=== PATIENT | male | born 1955 | race Caucasian/White ===

== ENCOUNTER 2020-11-02 10:07 | Inpatient (IN) | payer BC, OTHER ==
[~2020-11-02] VITALS: Ht 185.4 cm; Wt 111.0 kg
[2020-11-02] MEDS ORDERED: ADENOSINE 6 MG/2 ML INJ IV ONE (10:30)
[2020-11-02] MEDS ORDERED: dilTIAZem 25 MG/5 ML VIAL IV ONE ×3 (10:30→11:00)
[2020-11-02 10:57] LABS: Basophils # (auto) 0.1 10 ^3/uL (0-0.2); Basophils % (auto) 1.2 % (0.0-2.0); Eosinophils # (auto) 1.4 10 ^3/uL (0-0.8); Eosinophils % (auto) 14.4 % (0.0-7.0); Hematocrit 46.6 % (41.0-53.0); Hemoglobin 15.8 g/dL (13.5-17.5); Lymphocytes # (auto) 1.9 10 ^3/uL (0.4-5.4); Lymphocytes % (auto) 20.7 % (10.0-50.0); Mean Corpuscular Hemoglobin 30.6 pg (28.0-32.0); Mean Corpuscular Hgb Conc. 33.8 g/dL (32.0-36.0); Mean Corpuscular Volume 90.4 fL (80.0-100.0); Monocytes # (auto) 0.9 10 ^3/uL (0-1.3); Monocytes % (auto) 9.3 % (0.0-12.0); Neutrophils # (auto) 5.1 10 ^3/uL (1.6-8.6); Neutrophils % (auto) 54.4 % (37.0-80.0); Platelet Count (auto) 396 10^3/uL (140-450); Red Blood Cells 5.16 10^6/uL (4.5-5.90); White Blood Cell 9.4 10^3/uL (4.4-10.8)
[2020-11-02] MEDS ORDERED: DIGOXIN 0.25 MG TAB PO ONE (11:15)
[2020-11-02] MEDS ORDERED: dilTIAZem 125mg/125ml BAG KIT 125 ML IV SCH (11:15)
[2020-11-02 11:20] LABS: Albumin 3.4 g/dL (3.4-5.0); Anion Gap 5 (5-15); Blood Urea Nitrogen 14 mg/dL (7-18); Calcium 8.8 mg/dL (8.5-10.1); Carbon Dioxide 26 mmol/L (21-32); Chloride 109 mmol/L (98-107); Glucose 86 mg/dL (74-106); Magnesium 2.3 mg/dL (1.6-2.6); Potassium 3.9 mmol/L (3.5-5.1); Sodium 140 mmol/L (136-145)
[2020-11-02 11:25] LABS: Alanine Aminotransferase 17 U/L (16-61); Alkaline Phosphatase 131 U/L (45-117); Aspartate Aminotransferase 14 U/L (15-37); BUN/Creatinine Ratio 16.5; Bilirubin, Total 0.8 mg/dL (0.2-1.0); GFR African American 117 mL/min; GFR Non-African American 96 mL/min; Total Protein 7.8 g/dL (6.4-8.2)
[2020-11-02 12:45] LABS: Urine Bacteria NONE SEEN /hpf (None Seen); Urine Blood Negative /uL (Negative); Urine Mucus FEW (None Seen); Urine WBC <1 /hpf (0 - 3)
[2020-11-02] MEDS ORDERED: NITROGLYCERIN 0.4 MG SL TAB SL PRN (13:45)
[2020-11-02] MEDS ORDERED: ASPirin 81 mg TAB PO ONE (13:45)
[2020-11-02] MEDS ORDERED: ACETAMINOPHEN 500 MG TAB PO PRN (13:45)
[2020-11-02] MEDS ORDERED: ONDANSETRON HCL 4 MG/2 ML VIAL IV PRN (13:45)
[2020-11-02] MEDS ORDERED: MORPHINE SULF INJ 2 MG/ML SYRINGE 1ML IV PRN ×2 (13:45)
[2020-11-02] MEDS ORDERED: DOCUSATE SOD 100 MG CAP PO PRN (13:45)
[2020-11-02] MEDS ORDERED: ASPirin 81 mg TAB ONE (14:23)
[2020-11-02] MEDS: METOPROLOL SUCCINATE XL 50 MG TAB PO SCH (14:26)
[2020-11-02 14:33] LABS: Cholesterol 151 mg/dL (< 200)
[2020-11-02 14:36] LABS: HDL Cholesterol 41 mg/dL (40-59); LDL Cholesterol 101 mg/dL (< 100); Triglycerides 60 mg/dL (< 150)
[2020-11-02] MEDS: RIVAROXABAN 20 MG TAB PO SCH (18:59)
[2020-11-02] MEDS: HYDROcodone-ACET 5/325MG TAB PO PRN (19:42)
[2020-11-02 22:14] VITALS: BP 114/67
[2020-11-02 22:58] VITALS: BP 114/67
[2020-11-02] MEDS ORDERED: ATO40T PO (23:18)
[2020-11-02] MEDS ORDERED: DILT120T3 PO (23:18)
[2020-11-03 05:16] VITALS: BP 129/78
[2020-11-03 06:19] LABS: Hematocrit 40.5 % (41.0-53.0); Hemoglobin 14.1 g/dL (13.5-17.5); Mean Corpuscular Hemoglobin 31.4 pg (28.0-32.0); Mean Corpuscular Hgb Conc. 34.9 g/dL (32.0-36.0); Mean Corpuscular Volume 90.1 fL (80.0-100.0); Platelet Count (auto) 312 10^3/uL (140-450); Red Blood Cells 4.49 10^6/uL (4.5-5.90); Red Cell Distribution Width 13.2 % (11.8-14.3); White Blood Cell 7.4 10^3/uL (4.4-10.8)
[2020-11-03 06:31] LABS: Albumin 2.9 g/dL (3.4-5.0); BUN/Creatinine Ratio 25.6; Calcium 8.6 mg/dL (8.5-10.1)
[2020-11-03 06:33] LABS: Bilirubin, Total 0.7 mg/dL (0.2-1.0); Total Protein 6.2 g/dL (6.4-8.2)
[2020-11-03 06:53] LABS: Band Neutrophils % (manual) 0; Basophils % (manual) 0 (0.0-2.0); Blast Cells 0; Metamyelocytes % 0; Myelocytes % 0; Promyelocytes % 0; Reactive Lymphocytes 0
[2020-11-03 07:59] LABS: Eosinophils % (manual) 16 (0-7); Lymphocytes % (manual) 26 (10.0-50.0); Monocytes % (manual) 2 (0-12)
[2020-11-03 09:00] VITALS: BP 125/80
[2020-11-03] MEDS: ASPirin 81 mg TAB PO SCH (09:58)
[2020-11-03] MEDS: FAMOTIDINE 20 MG TAB PO SCH (09:59)
[2020-11-03] MEDS: METOPROLOL SUCCINATE XL 50 MG TAB PO SCH (10:00)
[2020-11-03] MEDS: LISINOPRIL 10 MG TAB PO SCH (10:01)
[2020-11-03] MEDS ORDERED: DILT-14 PO (11:20)
[2020-11-03 13:00] VITALS: BP 138/92
[2020-11-03] MEDS ORDERED: FUROSEMIDE 40 MG/4 ML VIAL IV ONE (14:00)
[2020-11-03 17:00] VITALS: BP 141/87
[2020-11-03] MEDS: RIVAROXABAN 20 MG TAB PO SCH (17:47)
[2020-11-03 22:00] VITALS: BP 126/79
[2020-11-04 05:00] VITALS: BP 117/74
[2020-11-04] MEDS: HYDROcodone-ACET 5/325MG TAB PO PRN (06:13)
[2020-11-04 07:56] LABS: BUN/Creatinine Ratio 23.5; Calcium 8.6 mg/dL (8.5-10.1)
[2020-11-04 09:00] VITALS: BP 141/84
[2020-11-04] MEDS ORDERED: FUROSEMIDE 40 MG/4 ML VIAL IV SCH (10:00)
[2020-11-04] MEDS: ASPirin 81 mg TAB PO SCH (10:09)
[2020-11-04] MEDS: METOPROLOL SUCCINATE XL 50 MG TAB PO SCH (10:09)
[2020-11-04] MEDS: FAMOTIDINE 20 MG TAB PO SCH (10:09)
[2020-11-04] MEDS: LISINOPRIL 10 MG TAB PO SCH (10:10)
[2020-11-04] MEDS ORDERED: TAM04C PO (10:18)
[2020-11-04] MEDS ORDERED: FURO40TA4 PO (10:18)
[2020-11-04] MEDS ORDERED: RIV20T PO (10:18)
[2020-11-04] MEDS ORDERED: METO25TA36 PO (10:18)
[2020-11-04] MEDS ORDERED: LISI-648 PO (10:18)
[2020-11-04 12:27] VITALS: BP 141/84
[2020-11-04 13:00] VITALS: BP 140/93
== END 2020-11-04 13:40 | disposition home or self-care (01) | DRG 291 ==
LOC: ER 10:07 → TELE 10:08 → EAST 21:27 → DOU IN ADS 21:41
PROVIDERS: ADMIT Nurse Practitioner Acute Care; ATTEND Internal Medicine
DX: I11.0 Hypertensive heart disease with heart failure (principal); I50.31 Acute diastolic (congestive) heart failure; I47.1 Supraventricular tachycardia; D68.69 Other thrombophilia; I48.91 Unspecified atrial fibrillation; E66.01 Morbid (severe) obesity due to excess calories; E78.5 Hyperlipidemia, unspecified; R09.02 Hypoxemia; Z20.822 Contact with and (suspected) exposure to COVID-19; N40.0 Benign prostatic hyperplasia without lower urinary tract symptoms; Z87.891 Personal history of nicotine dependence; Z91.14 Patient's other noncompliance with medication regimen; Z91.11 Patient's noncompliance with dietary regimen; Z68.32 Body mass index [BMI] 32.0-32.9, adult
CPT/HCPCS: 36415; 71045; 80048; 80053; 80061; 81001; 83735; 83880; 84443; 84484; 85007; 85025; 85027; 87426; 93005; 93306; 96365; 96375; 99291; G0378; J0153

== ENCOUNTER 2022-04-11 18:59 | Inpatient (IN) | payer BC ==
[~2022-04-11] VITALS: Ht 188 cm; Wt 108.1 kg
[~2022-04-11 18:59] MED LIST: FURO40TA4 PO; LISI-716 PO; METO25TA36 PO; TAM04C PO
[2022-04-11 19:22] LABS: Basophils # (auto) 0.1 10 ^3/uL (0-0.2); Basophils % (auto) 0.7 % (0.0-2.0); Eosinophils # (auto) 0.9 10 ^3/uL (0-0.8); Eosinophils % (auto) 9.2 % (0.0-7.0); Hematocrit 50.9 % (41.0-53.0); Hemoglobin 16.9 g/dL (13.5-17.5); Lymphocytes # (auto) 1.2 10 ^3/uL (0.4-5.4); Lymphocytes % (auto) 12.4 % (10.0-50.0); Mean Corpuscular Hemoglobin 29.8 pg (28.0-32.0); Mean Corpuscular Hgb Conc. 33.2 g/dL (32.0-36.0); Mean Corpuscular Volume 89.6 fL (80.0-100.0); Neutrophils # (auto) 6.5 10 ^3/uL (1.6-8.6); Neutrophils % (auto) 67.7 % (37.0-80.0); Nucleated Red Blood Cells % 0.2 %; Red Blood Cells 5.69 10^6/uL (4.5-5.90); White Blood Cell 9.6 10^3/uL (4.4-10.8)
[2022-04-11] MEDS ORDERED: ASPirin 81 mg TAB PO ONE (19:30)
[2022-04-11] MEDS ORDERED: dilTIAZem 25 MG/5 ML VIAL IV ONE (19:30)
[2022-04-11] MEDS ORDERED: dilTIAZem 125mg/125ml BAG KIT 125 ML IV ONE (19:30)
[2022-04-11] MEDS ORDERED: SODIUM CHLORIDE 0.9% 1,000 ML IV ONE (19:30)
[2022-04-11 19:39] LABS: Albumin 4.1 g/dL (3.4-5.0); BUN/Creatinine Ratio 12.4; Calcium 9.6 mg/dL (8.5-10.1); Potassium 4.4 mmol/L (3.5-5.1)
[2022-04-11 19:42] LABS: Bilirubin, Total 1.8 mg/dL (0.2-1.0); Total Protein 8.5 g/dL (6.4-8.2)
[2022-04-11] MEDS ORDERED: MORPHINE SULFATE INJ 2 MG/ml SYRG IV PRN (21:30)
[2022-04-11] MEDS ORDERED: ONDANSETRON HCL 4 MG/2 ML VIAL IV PRN (21:30)
[2022-04-11] MEDS ORDERED: ACETAMINOPHEN 325 MG TAB PO PRN (21:30)
[2022-04-11] MEDS ORDERED: NITROGLYCERIN 0.4 MG SL TAB SL PRN (21:30)
[2022-04-11] MEDS ORDERED: TEMAZEPAM 15 MG CAP PO PRN (21:30)
[2022-04-11] MEDS ORDERED: dilTIAZem 125mg/125ml BAG KIT 100 ML IV SCH (21:30)
[2022-04-11] MEDS ORDERED: AMIODARONE HCL 150 MG in D5W 5% 100 ML IV ONE (22:00)
[2022-04-11] MEDS ORDERED: AMIODARONE 450mg/250ml AE 250 ML IV SCH (22:15)
[2022-04-11] MEDS: APIXABAN 5 MG TAB PO SCH (22:34)
[2022-04-11] MEDS: ATORVASTATIN 20 MG TAB PO SCH (22:35)
[2022-04-12] VITALS (12 sets, daily range): BP systolic 91–134; BP diastolic 57–89
[2022-04-12] MEDS ORDERED: AMIODARONE 450mg/250ml AE 250 ML IV SCH (04:15)
[2022-04-12 07:22] LABS: Basophils # (auto) 0.1 10 ^3/uL (0-0.2); Basophils % (auto) 0.8 % (0.0-2.0); Eosinophils # (auto) 0.8 10 ^3/uL (0-0.8); Eosinophils % (auto) 9.2 % (0.0-7.0); Hematocrit 42.1 % (41.0-53.0); Hemoglobin 14.4 g/dL (13.5-17.5); Lymphocytes # (auto) 0.8 10 ^3/uL (0.4-5.4); Lymphocytes % (auto) 9.3 % (10.0-50.0); Mean Corpuscular Hemoglobin 30.7 pg (28.0-32.0); Mean Corpuscular Hgb Conc. 34.1 g/dL (32.0-36.0); Mean Corpuscular Volume 89.9 fL (80.0-100.0); Monocytes # (auto) 0.9 10 ^3/uL (0-1.3); Monocytes % (auto) 10.4 % (0.0-12.0); Neutrophils # (auto) 5.9 10 ^3/uL (1.6-8.6); Neutrophils % (auto) 70.3 % (37.0-80.0); Nucleated Red Blood Cells % 0.1 %; Red Blood Cells 4.69 10^6/uL (4.5-5.90); Red Cell Distribution Width 13.8 % (11.8-14.3); White Blood Cell 8.4 10^3/uL (4.4-10.8)
[2022-04-12 08:31] LABS: Potassium 4.1 mmol/L (3.5-5.1)
[2022-04-12 08:40] LABS: BUN/Creatinine Ratio 18.1; Bilirubin, Total 1.2 mg/dL (0.2-1.0); Calcium 8.1 mg/dL (8.5-10.1); Total Protein 6.1 g/dL (6.4-8.2)
[2022-04-12] MEDS: APIXABAN 5 MG TAB PO SCH ×2 (09:34→22:17)
[2022-04-12] MEDS: METOPROLOL SUCCINATE XL 50 MG TAB PO SCH (09:35)
[2022-04-12] MEDS: FUROSEMIDE 40 MG TAB PO SCH (09:36)
[2022-04-12] MEDS: PANTOPRAZOLE 40 MG TAB PO SCH (09:37)
[2022-04-12] MEDS ORDERED: LISINOPRIL 10 MG TAB PO SCH (10:00)
[2022-04-12] MEDS ORDERED: ASPirin 81 mg TAB PO SCH (10:00)
[2022-04-12] MEDS ORDERED: AMIODARONE HCL 200 MG TAB PO ONE (10:45)
[2022-04-12 11:16] LABS: Urine Bacteria FEW /hpf (None Seen); Urine Blood TRACE /uL (Negative); Urine Mucus FEW (None Seen); Urine Specific Gravity 1.021 (1.001-1.035); Urine WBC 8 /hpf (0 - 3)
[2022-04-12] MEDS ORDERED: TAMSULOSIN HYDROCHLORIDE 0.4 MG CAP PO SCH (18:00)
[2022-04-12] MEDS ORDERED: AMIODARONE HCL 200 MG TAB PO SCH (22:00)
[2022-04-12] MEDS: ATORVASTATIN 20 MG TAB PO SCH (22:03)
[2022-04-12] MEDS: AMIODARONE HCL 200 MG TAB PO SCH (22:04)
[2022-04-13 05:00] VITALS: BP 106/77
[2022-04-13] MEDS: APIXABAN 5 MG TAB PO SCH (09:18)
[2022-04-13] MEDS: AMIODARONE HCL 200 MG TAB PO SCH (09:18)
[2022-04-13] MEDS: METOPROLOL SUCCINATE XL 50 MG TAB PO SCH (09:19)
[2022-04-13] MEDS: FUROSEMIDE 40 MG TAB PO SCH (09:19)
[2022-04-13] MEDS: PANTOPRAZOLE 40 MG TAB PO SCH (09:19)
[2022-04-13 09:36] VITALS: BP 125/74
[2022-04-13] MEDS ORDERED: ATOR20TA50 PO (10:14)
[2022-04-13] MEDS ORDERED: TAM04C PO (10:14)
[2022-04-13] MEDS ORDERED: METO25TA36 PO (10:14)
[2022-04-13] MEDS ORDERED: AMIO200T33 PO (10:14)
[2022-04-13] MEDS ORDERED: APIX5TAB PO (10:14)
[2022-04-13 12:19] VITALS: BP 125/75
[2022-04-13 13:16] VITALS: BP 114/77
== END 2022-04-13 14:30 | disposition home or self-care (01) | DRG 308 ==
LOC: ER 18:59 → TELE 21:28 → ICU CENTRL 04-12 05:15 → CENTRAL 04-12 18:59 → TELE-CENTR 04-12 19:58
PROVIDERS: ADMIT Nurse Practitioner; ATTEND Internal Medicine Nephrology
DX: I48.91 Unspecified atrial fibrillation (principal); I50.31 Acute diastolic (congestive) heart failure; D68.59 Other primary thrombophilia; I11.0 Hypertensive heart disease with heart failure; Z20.822 Contact with and (suspected) exposure to COVID-19; Z82.49 Family history of ischemic heart disease and other diseases of the circulatory system; Z87.442 Personal history of urinary calculi
CPT/HCPCS: 36415; 71045; 80053; 81001; 83735; 84443; 84484; 85025; 87081; 93005; 93306; 93971; 96365; 96366; 96367; 96376; G0378; J7060

== ENCOUNTER → 2022-12-20 | Outpatient (CLI) | payer BC ==
[~2022-12-20] MED LIST changes: +AMIO200T33 PO; +APIX5TAB PO; +ATOR20TA50 PO; -LISI-716 PO; -TAM04C PO
[2022-12-20 12:10] LABS: Albumin 3.5 g/dL (3.4-5.0); Calcium 8.5 mg/dL (8.5-10.1)
[2022-12-20 12:12] LABS: BUN/Creatinine Ratio 17.5 (10.0-20.0); Bilirubin, Total 0.9 mg/dL (0.2-1.0); Total Protein 7.3 g/dL (6.4-8.2)
== END | disposition home or self-care (01) ==
LOC: LAB 11:16
DX: I10 Essential (primary) hypertension (principal)
CPT/HCPCS: 36415; 80053; 84443

== ENCOUNTER → 2023-01-22 | Outpatient (CLI) | payer BC | END | disposition home or self-care (01) | LOC: LAB 14:45 | DX: Z01.812 Encounter for preprocedural laboratory examination (principal) | CPT/HCPCS: 36415; 82565; 84520 ==

== ENCOUNTER 2023-05-15 10:37 | Emergency (ER) | payer BC ==
[~2023-05-15] VITALS: Ht 188 cm; Wt 114.6 kg
[2023-05-15 10:41] VITALS: BP 138/74; RESP 20; O2SAT 95
[2023-05-15 10:42] VITALS: PULSE 60
[2023-05-15 11:38] LABS: Basophils # (auto) 0.1 10 ^3/uL (0-0.2); Eosinophils # (auto) 0.4 10 ^3/uL (0-0.8); Eosinophils % (auto) 6.4 % (0.0-7.0); Hematocrit 40.4 % (41.0-53.0); Hemoglobin 13.6 g/dL (13.5-17.5); Lymphocytes # (auto) 1.1 10 ^3/uL (0.4-5.4); Lymphocytes % (auto) 19.3 % (10.0-50.0); Mean Corpuscular Hemoglobin 30.1 pg (28.0-32.0); Mean Corpuscular Hgb Conc. 33.7 g/dL (32.0-36.0); Mean Corpuscular Volume 89.5 fL (80.0-100.0); Monocytes # (auto) 0.5 10 ^3/uL (0-1.3); Monocytes % (auto) 9.7 % (0.0-12.0); Neutrophils # (auto) 3.5 10 ^3/uL (1.6-8.6); Neutrophils % (auto) 62.6 % (37.0-80.0); Red Blood Cells 4.51 10^6/uL (4.5-5.90); Red Cell Distribution Width 13.8 % (11.8-14.3); White Blood Cell 5.6 10^3/uL (4.4-10.8)
[2023-05-15 11:48] LABS: Urine Bacteria NONE SEEN /hpf (None Seen); Urine Blood Negative /uL (Negative); Urine Clarity Clear (Clear); Urine Color Yellow (Yellow); Urine Mucus FEW (None Seen); Urine Protein, UAD Negative (Negative); Urine Specific Gravity 1.023 (1.001-1.035); Urine WBC 3 /hpf (0 - 3); Urine pH 5.5 (5.0-8.0)
[2023-05-15 11:54] LABS: Alanine Aminotransferase 49 U/L (7-40); Albumin 4.1 g/dL (3.2-4.8); Alkaline Phosphatase 86 U/L (46-116); Anion Gap 6.2 (5-15); Aspartate Aminotransferase 25 U/L (13-40); BUN/Creatinine Ratio 16.3 (10.0-20.0); Blood Urea Nitrogen 16 mg/dL (9-23); Calcium 8.9 mg/dL (8.5-10.1); Carbon Dioxide 24.8 mmol/L (20-30); Chloride 111 mmol/L (98-107); Glucose 103 mg/dL (74-106); Sodium 142 mmol/L (136-145)
[2023-05-15 11:55] LABS: Bilirubin, Total 0.8 mg/dL (0.2-1.0); Total Protein 6.8 g/dL (5.7-8.2)
[2023-05-15] MEDS ORDERED: MECLIZINE HCL 25 MG TAB PO ONE (18:15)
== END 2023-05-15 19:27 | disposition home or self-care (01) ==
LOC: ER 10:37
DX: R42 Dizziness and giddiness (principal); R11.0 Nausea; I48.91 Unspecified atrial fibrillation; I10 Essential (primary) hypertension; E78.5 Hyperlipidemia, unspecified; Z87.442 Personal history of urinary calculi; Z98.890 Other specified postprocedural states; Z79.899 Other long term (current) drug therapy
CPT/HCPCS: 36415; 70450; 71045; 80053; 81001; 82962; 84484; 85025; 93005; 99285; J8597

== ENCOUNTER → 2024-02-27 | Outpatient (CLI) | payer BC ==
[2024-02-27 15:53] LABS: % Iron Saturation 7.9 % (20-55)
[2024-02-27 15:56] LABS: Ferritin 11.7 ng/mL (22-322); Folate (Folic Acid) > 24.00 ng/mL (>5.38)
== END | disposition home or self-care (01) ==
LOC: LAB 15:35
PROVIDERS: ATTEND Internal Medicine
DX: Z12.11 Encounter for screening for malignant neoplasm of colon (principal); I12.9 Hypertensive chronic kidney disease with stage 1 through stage 4 chronic kidney disease, or unspecified chronic kidney disease; N18.2 Chronic kidney disease, stage 2 (mild); D63.1 Anemia in chronic kidney disease; R73.03 Prediabetes; Z11.59 Encounter for screening for other viral diseases
CPT/HCPCS: 82607; 82728; 82746; 83540; 83550; 86703

== ENCOUNTER → 2024-03-21 | Outpatient (CLI) | payer BC | END | disposition home or self-care (01) | LOC: XYW 15:35 | PROVIDERS: ATTEND Internal Medicine | DX: Z01.810 Encounter for preprocedural cardiovascular examination (principal); I35.8 Other nonrheumatic aortic valve disorders; R06.02 Shortness of breath | CPT/HCPCS: 93306 ==

== ENCOUNTER → 2024-06-02 | Outpatient (CLI) | payer BC ==
[2024-06-02 15:47] LABS: Basophils # (auto) 0.1 10 ^3/uL (0-0.2); Basophils % (auto) 1.1 % (0.0-2.0); Eosinophils # (auto) 0.3 10 ^3/uL (0-0.8); Eosinophils % (auto) 4.8 % (0.0-7.0); Hematocrit 40.5 % (41.0-53.0); Hemoglobin 13.7 g/dL (13.5-17.5); Lymphocytes # (auto) 1.1 10 ^3/uL (0.4-5.4); Lymphocytes % (auto) 18.3 % (10.0-50.0); Mean Corpuscular Hemoglobin 29.9 pg (28.0-32.0); Mean Corpuscular Hgb Conc. 33.9 g/dL (32.0-36.0); Mean Corpuscular Volume 88.2 fL (80.0-100.0); Monocytes # (auto) 0.6 10 ^3/uL (0-1.3); Monocytes % (auto) 9.6 % (0.0-12.0); Neutrophils % (auto) 66.2 % (37.0-80.0); Nucleated Red Blood Cells % 0.1 %; Platelet Count (auto) 300 10^3/uL (140-450); Red Blood Cells 4.59 10^6/uL (4.5-5.90); Red Cell Distribution Width 20.1 % (11.8-14.3)
[2024-06-02 16:09] LABS: Alanine Aminotransferase 60 U/L (7-40); Alkaline Phosphatase 122 U/L (46-116); Anion Gap 6 (5-15); Aspartate Aminotransferase 41 U/L (13-40); Blood Urea Nitrogen 13 mg/dL (9-23); Calcium 9.3 mg/dL (8.7-10.4); Carbon Dioxide 28 mmol/L (20-30); Chloride 107 mmol/L (98-107); Glucose 85 mg/dL (74-106); Potassium 4.6 mmol/L (3.5-5.1); Sodium 141 mmol/L (136-145)
[2024-06-02 16:10] LABS: Bilirubin, Total 0.6 mg/dL (0.2-1.0); Total Protein 6.5 g/dL (5.7-8.2)
== END | disposition home or self-care (01) ==
LOC: LAB 15:30
PROVIDERS: ATTEND Internal Medicine
DX: D50.9 Iron deficiency anemia, unspecified (principal); R79.89 Other specified abnormal findings of blood chemistry
CPT/HCPCS: 36415; 80053; 85025

== ENCOUNTER 2025-01-04 13:41 | Inpatient (IN) | payer BC, MEDICARE ==
[~2025-01-04] VITALS: Ht 188 cm; Wt 113.0 kg
--- NOTE | 2025-01-04 13:55 | ED.PDOC ---
HPI Comments 69 y.o male presents to the ED for a chief complaint of right sided chest pain associated with positional SOB that started last night. Patient reports when laying flat, he is unable to breath, worsening his chest pain as well. Patient denies any back pain, abdominal pain, nausea, vomiting, fever, or chills. He denies substance, alcohol or tobacco use. Time Seen by MD: 13:50 Primary Care Provider: OMAR Arredondo Notes: Nurses Notes, Medications, Allergies Allergies: Coded Allergies: NO KNOWN ALLERGIES (Unverified , 07/13/13) Home Meds Active Scripts Amiodarone Hcl (Amiodarone Hcl) 200 Mg Tab, 200 MG PO BID for 30 Days, #60 TAB Prov:LEELA WILKINSON MD 04/13/22 Atorvastatin Calcium (ATORVASTATIN CALCIUM) 20 Mg Tab, 1 TAB PO HS for 30 Days, #30 TAB Prov:LEELA WILKINSON MD 04/13/22 Apixaban Base (ELIQUIS) 5 Mg Tab, 5 MG PO BID for 30 Days, #60 TAB 2 Refills Prov:LEELA WILKINSON MD 04/13/22 Metoprolol Succinate (Toprol Xl) 25 Mg Tab, 1 TAB PO DAILY for 30 Days, #30 TAB 2 Refills Prov:LEELA WILKINSON MD 04/13/22 Furosemide (Furosemide) 40 Mg Tab, 1 TAB PO DAILY PRN, #30 TAB 0 Refills Prov:SARTHAK DAVID MD 11/04/20 Information Source: Patient Mode of Arrival: Ambulatory Severity: Moderate Timing: Hours Duration: Since onset Location: Chest (R) Radiation: No Radiation Onset: At Rest Cardiac Risk Factors: HTN PE Risk Factors: None History of: None Modifying Factors: Nothing Associated Signs and Symptoms: SOB Past Medical History PAST MEDICAL HISTORY: AFIB, HTN, Kidney Stones Family History Family History: Reviewed,noncontributory to illness Social History Smoker: Non-Smoker Alcohol: Denies ETOH Use Drugs: Denies Drug Use Lives In: Home Constitutional: denies: chills, diaphoresis, fatigue, fever, malaise, sweats, weakness, others EENTM: denies: blurred vision, double vision, ear bleeding, ear discharge, ear drainage, ear pain, ear ringing, eye pain, eye redness, hearing loss, mouth pain, mouth swelling, nasal discharge, nose bleeding, nose congestion, nose pain, photophobia, tearing, throat pain, throat swelling, voice changes, others Respiratory: reports: SOB at rest, shortness of breath, SOB with excertion; denies: cough, hemoptysis, orthopnea, stridor, wheezing, others Cardiovascular: reports: chest pain; denies: dizzy spells, diaphoresis, Dyspnea on exertion, edema, irregular heart beat, left arm pain, lightheadedness, palpitations, PND, syncope, others Gastrointestinal: denies: abdomen distended, abdominal pain, blood streaked bowels, constipated, diarrhea, dysphagia, difficulty swallowing, hematemesis, melena, nausea, poor appetite, poor fluid intake, rectal bleeding, rectal pain, vomiting, others Genitourinary: denies: burning, dysuria, flank pain, frequency, hematuria, incontinence, penile discharge, penile sore, pain, testicle pain, testicle swelling, urgency, others Neurological: denies: dizziness, fainting, headache, left sided numbness, left sided weakness, numbness, paresthesia, pre-existing deficit, right sided numbness, right sided weakness, seizure, speech problems, tingling, tremors, weakness, others Musculoskeletal: denies: back pain, gout, joint pain, joint swelling, muscle pain, muscle stiffness, neck pain, others Integumetry: denies: bruises, change in color, change in hair/nails, dryness, laceration, lesions, lumps, rash, wounds, others Allergic/Immunocompromised: denies: Difficulty Healing, Frequent Infections, Hives, Itching, others Hematologic/Lymphatic: denies: anemia, blood clots, easy bleeding, easy bruising, swollen glands, others Endocrine: denies: excessive hunger, excessive sweating, excessive thirst, excessive urination, flushing, intolerance to cold, intolerance to heat, unexplained weight gain, unexplained weight loss, others Psychiatric: denies: anxiety, bipolar disorder, depression, hopeless, panic disorder, schizophrenia, sleepless, suicidal, others All Other Systems: Reviewed and Negative Physical Exam General Appearance: Moderate Distress HEENT: Normal ENT Inspection, Pharynx Normal, TMs Normal Neck: Full Range of Motion, Non-Tender, Normal, Normal Inspection Respiratory: Chest Non-Tender, Lungs Clear, No Accessory Muscle Use, No Respiratory Distress, Normal Breath Sounds Cardiovascular: No Edema, No JVD, No Murmur, No Gallop, Normal Peripheral Pulses, Regular Rate/Rhythm Breast Exam: Deferred Gastrointestinal: No Organomegaly, Non Tender, No Pulsatile Mass, Normal Bowel Sounds, Soft Genitalia: Deferred Pelvic: Deferred Rectal: Deferred Extremities: No calf tenderness, Normal capillary refill, Normal inspection, Normal range of motion, Non-tender, No pedal edema Musculoskeletal : Apperance: Normal 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 Was a procedure done?: No CP Differential Dx Differential Diagnosis: A-fib, A-Flutter, Angina, Anxiety / Panic Attack, Atrial Dysrhythmia, Electrolyte Disorder, N/A Differential Diagnosis: Angina, Chest Wall Pain, Cholelithiasis, Costochondritis, Esophageal reflux/spasm, Gastritis, Myocardial Infarction X-Ray, Labs, Meds, VS Vital Signs Date Time Temp Pulse Resp B/P (MAP) Pulse Ox O2 Delivery O2 Flow Rate FiO2 01/04/25 14:15 19 94 Room Air* 0 21 01/04/25 14:11 98.4 72 19 155/103 (120) 94 98.4 01/04/25 13:59 66 Lab Test 01/04/25 14:57 01/04/25 13:59 Range/Units Troponin I High Sensitivity Pending < 3 L </=54 ng/L White Blood Count 9.4 4.4-10.8 10^3/uL Red Blood Count 4.92 4.5-5.90 10^6/uL Hemoglobin 15.3 13.5-17.5 g/dL Hematocrit 44.2 41.0-53.0 % Mean Corpuscular Volume 89.7 80.0-100.0 fL Mean Corpuscular Hemoglobin 31.0 28.0-32.0 pg Mean Corpuscular Hemoglobin Concent 34.6 32.0-36.0 g/dL Red Cell Distribution Width 13.7 11.8-14.3 % Platelet Count 320 140-450 10^3/uL Mean Platelet Volume 6.6 L 6.9-10.8 fL Neutrophils (%) (Auto) 76.6 37.0-80.0 % Lymphocytes (%) (Auto) 12.0 10.0-50.0 % Monocytes (%) (Auto) 9.2 0.0-12.0 % Eosinophils (%) (Auto) 1.2 0.0-7.0 % Basophils (%) (Auto) 1.0 0.0-2.0 % Neutrophils # (Auto) 7.2 1.6-8.6 10 ^3/uL Lymphocytes # (Auto) 1.1 0.4-5.4 10 ^3/uL Monocytes # (Auto) 0.9 0-1.3 10 ^3/uL Eosinophils # (Auto) 0.1 0-0.8 10 ^3/uL Basophils # (Auto) 0.1 0-0.2 10 ^3/uL Nucleated Red Blood Cells 0.1 % Sodium Level 137 136-145 mmol/L Potassium Level 4.0 3.5-5.1 mmol/L Chloride Level 105 98-107 mmol/L Carbon Dioxide Level 25 20-31 mmol/L Anion Gap 7 5-15 Blood Urea Nitrogen 12 9-23 mg/dL Creatinine 0.85 0.700-1.30 mg/dL Glomerular Filtration Rate Calc 95 >90 mL/min BUN/Creatinine Ratio 14.1 10.0-20.0 Serum Glucose 94 74-106 mg/dL Calcium Level 9.3 8.7-10.4 mg/dL Patient alert. Complaining of chest pain. Vitals stable. Answering questions. Cardiac marker within normal limits. Blood pressure elevated. WBC within normal limits. Hemoglobin within normal limits. Risk factors for coronary artery disease. Reviewed his history. Explained to the patient. He has been taking his Eliquis for more than five weeks pain Continue monitoring. Time of 1ST Reevaluation: 13:53 Reevaluation 1ST: Unchanged Patient Education/Counseling: Diagnosis, Treatment, Prognosis Family Education/Counseling: No Family Present Departure 1 Departure Time of Disposition: 15:17 Impression: Primary Impression: Chest pain of unknown etiology Additional Impression: Hypertensive urgency Disposition: 09 ADMITTED INPATIENT Admit to: Med Surg Condition: Guarded Critical Care Note Critical Care Time?: Yes (45 min-critical care time only) Critical care comment: Chest pain continue monitoring Stability Stability form required: No I personally scribed for JAN REIS MD ([email or web address]) on 01/04/25 at 13:55. Electronically submitted by Ros Obrien ([facility]). JAN REIS MD Jan 04, 2025 13:55
[2025-01-04 14:10] LABS: Basophils # (auto) 0.1 10 ^3/uL (0-0.2); Eosinophils # (auto) 0.1 10 ^3/uL (0-0.8); Eosinophils % (auto) 1.2 % (0.0-7.0); Hematocrit 44.2 % (41.0-53.0); Hemoglobin 15.3 g/dL (13.5-17.5); Lymphocytes # (auto) 1.1 10 ^3/uL (0.4-5.4); Mean Corpuscular Hgb Conc. 34.6 g/dL (32.0-36.0); Mean Corpuscular Volume 89.7 fL (80.0-100.0); Monocytes # (auto) 0.9 10 ^3/uL (0-1.3); Monocytes % (auto) 9.2 % (0.0-12.0); Neutrophils # (auto) 7.2 10 ^3/uL (1.6-8.6); Neutrophils % (auto) 76.6 % (37.0-80.0); Nucleated Red Blood Cells % 0.1 %; Platelet Count (auto) 320 10^3/uL (140-450); Red Blood Cells 4.92 10^6/uL (4.5-5.90); Red Cell Distribution Width 13.7 % (11.8-14.3); White Blood Cell 9.4 10^3/uL (4.4-10.8)
[2025-01-04 14:28] LABS: Chloride 105 mmol/L (98-107); Sodium 137 mmol/L (136-145)
[2025-01-04 14:29] LABS: Anion Gap 7 (5-15); Calcium 9.3 mg/dL (8.7-10.4); Carbon Dioxide 25 mmol/L (20-31)
[2025-01-04 14:34] LABS: BUN/Creatinine Ratio 14.1 (10.0-20.0); Blood Urea Nitrogen 12 mg/dL (9-23); Glucose 94 mg/dL (74-106)
--- NOTE | 2025-01-04 14:35 | ECG ---
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
--- NOTE | 2025-01-04 14:38 | DVH ---
CHEST RADIOGRAPH Indication: sob Technique: Single frontal view of the chest was obtained COMPARISON: XY CHEST PORTABLE on DOS: 05/15/23, CHEST PORTABLE on DOS: 04/13/22, CXRP on DOS: 04/13/22, CHEST PORTABLE on DOS: 04/11/22, CHEST PORTABLE on DOS: 11/03/20 FINDINGS: Lines and Tubes: None Lungs: Bibasilar subsegmental atelectasis. Pleura: No effusion. No pneumothorax. Cardiomediastinal contours: Large hiatal hernia Bones: Unremarkable IMPRESSION: Bibasilar subsegmental atelectasis. Large hiatal hernia.
[2025-01-04 15:15] VITALS: RESP 16
[2025-01-04] MEDS ORDERED: NITROGLYCERIN 0.4 MG SL TAB SL PRN (15:45)
[2025-01-04] MEDS: ASPirin 325 MG TAB PO ONE (15:56)
[2025-01-04] MEDS: NITROGLYCERIN 0.4 MG SL TAB SL ONE (15:56)
[2025-01-04 16:27] LABS: Triglycerides 84 mg/dL (< 150)
[2025-01-04 16:29] LABS: HDL Cholesterol 54 mg/dL (40-59)
[2025-01-04 16:30] LABS: Cholesterol 229 mg/dL (< 200); LDL Cholesterol 175 mg/dL (< 100)
[2025-01-04 16:53] LABS: Alanine Aminotransferase 22 U/L (7-40); Albumin 4.3 g/dL (3.2-4.8); Alkaline Phosphatase 106 U/L (46-116); Anion Gap 10 (5-15); Aspartate Aminotransferase 21 U/L (13-40); BUN/Creatinine Ratio 12.4 (10.0-20.0); Blood Urea Nitrogen 11 mg/dL (9-23); Calcium 9.5 mg/dL (8.7-10.4); Carbon Dioxide 25 mmol/L (20-31); Chloride 104 mmol/L (98-107); Glucose 93 mg/dL (74-106); Potassium 4.2 mmol/L (3.5-5.1); Sodium 139 mmol/L (136-145); Total Protein 6.9 g/dL (5.7-8.2)
[2025-01-04 16:54] LABS: Bilirubin, Total 1.6 mg/dL (0.2-1.0)
[2025-01-04] MEDS: IOHEXOL 350 MG/ML 100ML IJ ONE (17:59)
[2025-01-04] MEDS: LOSARTAN POTASSIUM 25 MG TAB PO ONE (18:36)
[2025-01-04] MEDS: PANTOPRAZOLE 40 MG TAB PO ONE (18:36)
--- NOTE | 2025-01-04 19:08 | DVH ---
Exam: CT CT AB PELVIS W WO CON-IV ONLY History: positive lymph node around stomach, stool ocult+, hernia Comparison Study: CT chest abdomen and pelvis 03/24/2024 Technique: Multidetector spiral CT of the abdomen and pelvis was performed with and without contrast. Axial, coronal and sagittal multiplanar reformats were performed by the technologist on a separate w orkstation. Radiation Dose : CT Dose: CTDI volume is 35.52 mGy. Dose-length product is 4034.46 mGy*cm Findings: Trace right-sided pleural effusion with bibasilar atelectasis. Right middle lobe ground-glass opacity . Partially visualized heart is unremarkable. 1.6 cm hepatic cyst with additional subcentimeter hypodense hepatic lesions that are too small to kassie racterize but may represent small cyst. Liver is normal in size. Spleen, gallbladder, pancreas and a drenal glands unremarkable. 1.9 cm right renal cyst. Additional subcentimeter hypodense right renal lesion that is too small to c haracterize. Otherwise, kidneys, ureters and urinary bladder unremarkable. Prostate is enlarged with Foci of calcification measuring 4.7 x 6.1 by 5.3 cm. Large hiatal hernia containing the entire stomach and segment of the transverse colon. Mild wall thic kening of the distal esophagus and gastric fundus. The small bowel loops unremarkable. The appendix i s unremarkable. Mild wall thickening of the herniated transverse colon. Descending colon and sigmoid diverticulosis without diverticulitis. Small to moderate amount of fecal material within the colon. No evidence of intraperitoneal free air or free fluid. No evidence of aortic aneurysm or dissection. Mild atherosclerotic calcification of the aorta and bi lateral iliacs. No significant lymphadenopathy. Tiny fat containing umbilical hernia. Small fat containing left inguinal hernia. No destructive osseo us lesions noted. IMPRESSION: Large hiatal hernia containing the entire stomach and segment of the transverse colon. Mild wall thickening of the distal esophagus and gastric fundus which may be due to inadequate disten tion With the esophagitis and gastritis respectively not excluded. Mild wall thickening of segment of herniated transverse colon which may be due to inadequate distenti on/colitis. Enlarged prostate. Recommend correlation with PSA. Patchy ground-glass opacity of the right middle lobe which may be due to infectious / inflammatory pr ocess. Bibasilar atelectasis. Trace right-sided pleural effusion. Additional findings as above.
--- NOTE | 2025-01-04 19:48 | DVH ---
CTA Chest with intravenous contrast INDICATION: PE COMPARISON: CT 03/24/2024 TECHNIQUE: Multidetector spiral CTA of the chest was performed of the chest with intravenous contrast . PULMONARY ANGIOGRAPHY PROTOCOL was utilized using a bolus-tracking technique centered on the main p ulmonary artery. Axial, coronal and sagittal multiplanar and MIP reformats were performed. Radiation Dose : 1. Chest: CTDI volume is 36 mGy. Dose-length product is 4034 mGy*cm The dose indicators for CT are the volume Computed Tomography (CT) Dose Index (CTDIvol) and the Dose Length Product (DLP), and are measured in units of mGy and mGy-cm, respectively. These indicators are not patient dose, but values generated from the CT scanner acquisition factors. The report includes radiation exposure data for exposures received during this examination. Findings: Pulmonary artery: Right middle lobar pulmonary embolism extending from the lobar artery into multiple segmental branche s. Lower neck: Normal thyroid. Lungs and Pleura: Wedge-shaped ground-glass opacification involving the inferior aspect of the right middle lobe. Minimal left basilar atelectasis. Trace right pleural effusion. No pneumothorax. Heart/Vascular Structures: Normal heart size. The RV: LV ratio is less than 1. No pericardial effusio n. Coronary artery calcifications. Lymph Nodes: Subcentimeter mediastinal lymph nodes, nonspecific. Mediastinum: Large hiatal hernia. Musculoskeletal: No acute osseous abnormality. Soft tissues: Normal. Upper abdomen: Please see same -day CT abdomen and pelvis. IMPRESSION: 1. Right middle lobar pulmonary embolism. No evidence of right heart strain. 2. Likely pulmonary infarct involving the inferior aspect of the right middle lobe. 3. Trace right pleural effusion. Critical Result: Pulmonary embolism. Findings discussed 01/04/2025 with Yohan Jay RN at 7:38 PM, and acknowledged receipt and unders tanding of the findings.
[2025-01-04] MEDS: cefTRIAXone 1GM/50ML D5W 50 ML IV ONE (19:56)
--- NOTE | 2025-01-04 19:57 | DVHHPRES ---
History of Present Illness Resident Creating Document: ROJELIO RAMOS History of Present Illness The patient is a 69-year-old male with past medical history of atrial fibrillation, hypertension who came to the hospital with a chief complaint of chest pain which was located on right sided over 9, 10, 11 rib, around mid clavicular line, octreotide with shortness of breaths, worsening of chest pain with movement, assure sugar with breathing, 7/10. However patient denied any other companies including fever, chills, sputum production, cough, nausea, vomiting, any other symptoms. Patient never failure similar kind of symptoms before, the patient underwent within last 2 year dobutamine stress echo which was negative for ischemia, the patient will be admitted for ruling out etiology of chest pain. The patient denied any other complaint at this point. PMH: Atrial fibrillation, hypertension Medication: Eliquis, furosemide, metoprolol, Lasix, atorvastatin, amiodarone Surgery: Left elbow surgery, right ankle surgery presence of prosthesis Allergy none Family history mother stroke, father myocardial infarction Personal history: Former smoker, quit in 1995. Twenty pack-year history. Methamphetamine use between 1983 and 1995 Review of Systems Constitutional: No: Fever, Chills, Sweats, Weakness, Malaise, Other Eyes: No: Pain, Vision change, Conjunctivae inflammation, Eyelid inflammation, Other, Redness ENT: No: Ear pain, Ear discharge, Nose pain, Nose discharge, Nose congestion, Mouth pain, Mouth swelling, Throat pain, Throat swelling, Other Respiratory: No: Cough, Dry, Shortness of breath, SOB with excertion, Wheezing, Hemoptysis, Pleuritic Pain, Sputum, Wheezing, Other Cardiovascular: Chest Pain Gastrointestinal: No: Nausea, Vomiting, Abdominal Pain, Diarrhea, Constipation, Melena, Hematochezia, Other Genitourinary: No Dysuria, No Frequency, No Incontinence, No Hematuria, No Retention, No Other Musculoskeletal: No: other, neck pain, shoulder pain, arm pain, back pain, hand pain, leg pain, foot pain Skin: No: Rash, Lesions, Jaundice, Bruising, Other Allergies: Coded Allergies: NO KNOWN ALLERGIES (Unverified , 07/13/13) Medications Current Medications Medications Dose Ordered Sig/Lucio Route Start Time Stop Time Status Last Admin Dose Admin Nitroglycerin 0.4 mg Q5MINP PRN SL 01/04/25 15:45 Morphine Sulfate 2 mg Q30M PRN IV 01/04/25 15:45 Amiodarone HCl 200 mg BID PO 01/04/25 22:00 Apixaban 5 mg BID PO 01/04/25 22:00 Atorvastatin Calcium 20 mg HS PO 01/04/25 22:00 Furosemide 40 mg DAILY PO 01/05/25 10:00 Metoprolol Succinate 25 mg DAILY PO 01/05/25 10:00 Aspirin 81 mg DAILY PO 01/05/25 10:00 Pantoprazole Sodium 40 mg DAILY@0600 PO 01/05/25 06:00 Losartan Potassium 12.5 mg DAILY PO 01/05/25 10:00 Ceftriaxone Sodium 50 ml @ 100 mls/hr Q24H IV 01/05/25 21:00 Azithromycin 500 mg Q24H PO 01/05/25 21:00 Exam Vital Signs Vital Signs Date Time Temp Pulse Resp B/P (MAP) Pulse Ox O2 Delivery O2 Flow Rate FiO2 01/04/25 19:34 98.0 76 20 149/84 (105) 96 98.0 01/04/25 16:35 Room Air 01/04/25 15:15 0 21 General Appearance: Alert, Oriented X3, Cooperative HEENT: PERRLA, EOMI Respiratory: Clear to auscultation Cardiovascular: Regular rate, Normal S1, Normal S2 Abdominal: Normal bowel sounds, Soft, No tenderness Extremities: No clubbing, No cyanosis, No edema Skin: No rashes, No breakdown, No significant lesion Neuro: Normal gait, Normal speech, Strength at 5/5 X4 ext Labs/Xrays Labs Test 01/04/25 16:27 01/04/25 14:57 01/04/25 13:59 Range/Units Sodium Level 139 136-145 mmol/L Potassium Level 4.2 3.5-5.1 mmol/L Chloride Level 104 98-107 mmol/L Carbon Dioxide Level 25 20-31 mmol/L Anion Gap 10 5-15 Blood Urea Nitrogen 11 9-23 mg/dL Creatinine 0.89 0.700-1.30 mg/dL Glomerular Filtration Rate Calc 93 >90 mL/min BUN/Creatinine Ratio 12.4 10.0-20.0 Serum Glucose 93 74-106 mg/dL Calcium Level 9.5 8.7-10.4 mg/dL Total Bilirubin 1.6 H 0.2-1.0 mg/dL Aspartate Amino Transferase (AST) 21 13-40 U/L Alanine Aminotransferase (ALT) 22 7-40 U/L Alkaline Phosphatase 106 46-116 U/L Total Protein 6.9 5.7-8.2 g/dL Albumin 4.3 3.2-4.8 g/dL Troponin I High Sensitivity < 3 L </=54 ng/L White Blood Count 9.4 4.4-10.8 10^3/uL Red Blood Count 4.92 4.5-5.90 10^6/uL Hemoglobin 15.3 13.5-17.5 g/dL Hematocrit 44.2 41.0-53.0 % Mean Corpuscular Volume 89.7 80.0-100.0 fL Mean Corpuscular Hemoglobin 31.0 28.0-32.0 pg Mean Corpuscular Hemoglobin Concent 34.6 32.0-36.0 g/dL Red Cell Distribution Width 13.7 11.8-14.3 % Platelet Count 320 140-450 10^3/uL Mean Platelet Volume 6.6 L 6.9-10.8 fL Neutrophils (%) (Auto) 76.6 37.0-80.0 % Lymphocytes (%) (Auto) 12.0 10.0-50.0 % Monocytes (%) (Auto) 9.2 0.0-12.0 % Eosinophils (%) (Auto) 1.2 0.0-7.0 % Basophils (%) (Auto) 1.0 0.0-2.0 % Neutrophils # (Auto) 7.2 1.6-8.6 10 ^3/uL Lymphocytes # (Auto) 1.1 0.4-5.4 10 ^3/uL Monocytes # (Auto) 0.9 0-1.3 10 ^3/uL Eosinophils # (Auto) 0.1 0-0.8 10 ^3/uL Basophils # (Auto) 0.1 0-0.2 10 ^3/uL Nucleated Red Blood Cells 0.1 % D-Dimer, Quantitative 1.61 H 0.0-0.49 mg/L FEU Triglycerides Level 84 < 150 mg/dL Cholesterol Level 229 H < 200 mg/dL LDL Cholesterol 175 H < 100 mg/dL HDL Cholesterol 54 40-59 mg/dL Thyroid Stimulating Hormone (TSH) 1.37 0.55-4.78 uIU/mL Assessment/Plan Assessment/Plan Chest pain likely due to PE Pulmonary embolism Pulmonary infarct involving inferior aspect of right middle lobe Pneumonia Large hiatal hernia Questionable acute esophagitis and gastritis Questionable colitis BPH Hypertension Dyslipidemia Iron deficiency Plan/recommendation -reviewed CT chest angio: Right middle lobar pulmonary embolism, pulmonary infarct involving inferior aspect of right middle lobe, initiate on IV heparin drip, consulted Interventional Radiology for possible thrombectomy. -IV antibiotics with ceftriaxone and azithromycin -continue with home medication aspirin, atorvastatin, Lasix, losartan, metoprolol. -PUD prophylaxis Protonix -DVT prophylaxis : Heparin drip Goals of care discussed greater than 24 m, full code status Plan discussed with Dr. Bella Plan discussed with: Patient, Other (RN) My Orders Orders - ROJELIO RAMOS RESIDENT Procedure Category Date Status Time Admit ADMIT 01/04/25 Transmitted 15:42 Nitroglycerin PHA 01/04/25 In Process Sublingual (Ntrostat 15:45 Morphine Sulfate PHA 01/04/25 In Process Injection 15:45 Amiodarone Tablet PHA 01/04/25 In Process (Cordarone Tablet) 22:00 Apixaban (Eliquis) PHA 01/04/25 In Process 22:00 Atorvastatin (Lipitor) PHA 01/04/25 In Process 22:00 Furosemide Tablet PHA 01/05/25 In Process (Lasix Tablet) 10:00 Metoprolol Xl PHA 01/05/25 In Process Succinate (Toprol Xl) 10:00 Aspirin Tablet PHA 01/05/25 In Process 10:00 Pantoprazole Tablet PHA 01/05/25 In Process (Protonix Tablet) 06:00 Losartan Tablet PHA 01/05/25 In Process (Cozaar Tablet) 10:00 Carcinoembryonic LAB 01/04/25 In Process Antigen 15:56 Carbohydrate Antigen LAB 01/04/25 In Process 19-9 Urinalysis LAB 01/04/25 Logged 16:02 Ct Ab Pelvis W Wo CT 01/04/25 Resulted Con-Iv Only 16:[address] 01/04/25 Taken Contrast 16:32 Ceftriaxone 1gm/50ml PHA 01/05/25 In Process D5w (Rocephin) 21:00 Ceftriaxone 1gm/50ml PHA 01/04/25 In Process D5w (Rocephin) 19:45 Azithromycin Tablet PHA 01/05/25 In Process (Zithromax Tablet) 21:00 Date of Service: Jan 04, 2025 Billing Provider: YAMILETH VERDUGO MD Common Visit Codes: 02587-HJALLOM INP/OBS CARE (HIGH) Secondary Visit Codes: 37067-[id number] CARE PLAN 30 MINUTES ROJELIO RAMOS RESIDENT Jan 04, 2025 19:57 YAMILETH VERDUGO MD Jan 05, 2025 10:50
[2025-01-04] MEDS: AZITHROMYCIN 250 MG TAB PO ONE (20:08)
[2025-01-04] MEDS: MORPHINE SULFATE INJ 2 MG/ml SYRG IV PRN (20:14)
[2025-01-04] MEDS: MORPHINE SULFATE 4 MG/ML SYR/VIAL ONE (20:22)
[2025-01-04 20:40] VITALS: RESP 17
[2025-01-04 20:53] LABS: Basophils # (auto) 0.1 10 ^3/uL (0-0.2); Basophils % (auto) 1.1 % (0.0-2.0); Eosinophils # (auto) 0 10 ^3/uL (0-0.8); Eosinophils % (auto) 0.4 % (0.0-7.0); Hematocrit 44.3 % (41.0-53.0); Lymphocytes # (auto) 1.3 10 ^3/uL (0.4-5.4); Lymphocytes % (auto) 11.6 % (10.0-50.0); Mean Corpuscular Hemoglobin 30.9 pg (28.0-32.0); Mean Corpuscular Hgb Conc. 33.8 g/dL (32.0-36.0); Mean Corpuscular Volume 91.3 fL (80.0-100.0); Monocytes % (auto) 8.9 % (0.0-12.0); Neutrophils # (auto) 8.7 10 ^3/uL (1.6-8.6); Platelet Count (auto) 295 10^3/uL (140-450); Red Blood Cells 4.85 10^6/uL (4.5-5.90); Red Cell Distribution Width 13.9 % (11.8-14.3); White Blood Cell 11.1 10^3/uL (4.4-10.8)
[2025-01-04 21:04] LABS: INR 1.14 (0.9-1.15); Partial Thromboplastin Time 30.4 SEC (24.5-34.5); Prothrombin Time 11.9 sec (9.3-11.8)
[2025-01-04 21:12] VITALS: BP 140/77; PULSE 66; PULSE 78; RESP 18; TEMP 98.2; O2SAT 95; O2SAT 98
[2025-01-04] MEDS: ATORVASTATIN 20 MG TAB PO SCH (21:26)
[2025-01-04] MEDS: AMIODARONE HCL 200 MG TAB PO SCH (21:26)
[2025-01-04] MEDS ORDERED: APIXABAN 5 MG TAB PO SCH (22:00)
--- NOTE | 2025-01-04 22:02 | CONS ---
Pharmacy Clinical Information: PROVIDER: ROJELIO RAMOS PT=11.9 INR=1.14 PTT=30.4 H/H=15.3/44.2 [id number] INDICATION: DVT/PE D-DIMER=1.61 IO=601.3 KG (SCALE) PER RN, NO SIGNS OF BLEEDING. STARTING RATE=20 ML/HR NEXT PTT @ 0430 PER PT, HE HAS NOT TAKEN ELIQUIS FOR 2 MOS. RN IS ASKING HOSPITALIST IF THEY WANT TO ADD BOLUS ONTO DRIP. WILL NOTIFY PHARMACY SO WE CAN RETIME PTT. PRABHU FARNSWORTH Jan 04, 2025 22:02
[2025-01-04] MEDS: HEPARIN DRIP/D5W 100UNITS/ML 250 ML IV SCH (22:16)
--- NOTE | 2025-01-04 23:29 | DVHSR ---
APPROVED REPORT EXAM: Two-dimensional and M-mode echocardiogram with Doppler and color Doppler. Blood Pressure: 126/78 mmHg INDICATION Chest Pain RISK FACTORS Height: 5'10", Weight: 249 DIMENSIONS LVDd4.8 (3.8-5.7cm)LA (2D)5.0 (1.9-4.0cm)Aortic Root3.8 (2.0-3.7cm) LVDs3.2 (2.5-4.0cm)LA (MM) (1.9-4.0cm)Aortic Cusp Exc2.0 (1.5-2.0cm) EF (%) 60.0 (55-70%)Rt. Atrium4.7 (1.9-4.0cm)Asc. Aorta cm IVSd1.1 (0.7-1.1cm)RV (D)5.0 (1.8-2.4cm) PWd1.0 (0.7-1.1cm) Mitral Valve MitralMitral Stenosis E wave0.83m/sMV Mean GR.mmHg A wave0.76m/sMV Peak GR.mmHg E/A ratio1.12D MVAcm2 DECEL [id number] 1/2 Timems Aortic Valve Aortic ValveAortic Stenosis V11.02m/Abhijeet Mean GR.6mmHg V21.76m/Abhijeet Peak GR.12mmHg LVOT Diameter2.2 (1.8-2.4cm)Doppler AVA2.20cm2 Pulmonic Valve V21.11m/s Conclusion MODERATE DEGREE AORTIC REGURGITATION NORMAL MV,TV AND PV LV EF IS 65% SLIGHTLY DILATED LV NORMAL RV FUNCTION AND SIZE NO EFFUSION SUGGESTION: PLEASE ORDER CTA OF CHEST TO EVALUATE SIZE OF AORTIC ROOT AND ASCENDING AORTA
[2025-01-05] VITALS (8 sets, daily range): BP systolic 115–141; BP diastolic 64–81; PULSE 56–67; RESP 16–28; TEMP 98–98.9; O2SAT 95–98
[2025-01-05] MEDS: MORPHINE SULFATE INJ 2 MG/ml SYRG IV PRN
[2025-01-05 00:29] LABS: Urine Bacteria FEW /hpf (None Seen); Urine Blood TRACE /uL (Negative); Urine Clarity Clear (Clear); Urine Color Light-Orange (Yellow); Urine Protein, UAD 1+ (Negative); Urine Squamous Epithelial Cell FEW /hpf (<5); Urine Urobilinogen Normal (Negative); Urine WBC 1 /HPF (0-3)
[2025-01-05 00:30] LABS: Urine Specific Gravity > 1.050 (1.001-1.035)
[2025-01-05 02:20] LABS: INR 1.18 (0.9-1.15); Partial Thromboplastin Time 64.4 SEC (24.5-34.5); Prothrombin Time 12.3 sec (9.3-11.8)
[2025-01-05] MEDS: PANTOPRAZOLE 40 MG TAB PO SCH (06:10)
[2025-01-05 06:59] LABS: Basophils # (auto) 0 10 ^3/uL (0-0.2); Basophils % (auto) 0.4 % (0.0-2.0); Eosinophils # (auto) 0 10 ^3/uL (0-0.8); Eosinophils % (auto) 0.1 % (0.0-7.0); Hematocrit 42.2 % (41.0-53.0); Lymphocytes # (auto) 0.9 10 ^3/uL (0.4-5.4); Lymphocytes % (auto) 8.2 % (10.0-50.0); Mean Corpuscular Hemoglobin 30.5 pg (28.0-32.0); Mean Corpuscular Hgb Conc. 33.2 g/dL (32.0-36.0); Mean Corpuscular Volume 91.8 fL (80.0-100.0); Monocytes # (auto) 1.2 10 ^3/uL (0-1.3); Monocytes % (auto) 10.1 % (0.0-12.0); Neutrophils # (auto) 9.3 10 ^3/uL (1.6-8.6); Neutrophils % (auto) 81.2 % (37.0-80.0); Platelet Count (auto) 288 10^3/uL (140-450); Red Blood Cells 4.59 10^6/uL (4.5-5.90); White Blood Cell 11.4 10^3/uL (4.4-10.8)
[2025-01-05 07:08] LABS: Anion Gap 7 (5-15); Carbon Dioxide 24 mmol/L (20-31); Chloride 103 mmol/L (98-107); Potassium 3.7 mmol/L (3.5-5.1)
[2025-01-05 07:10] LABS: Calcium 9.2 mg/dL (8.7-10.4)
[2025-01-05 07:12] LABS: Sodium 134 mmol/L (136-145)
[2025-01-05 07:14] LABS: BUN/Creatinine Ratio 13.5 (10.0-20.0); Blood Urea Nitrogen 12 mg/dL (9-23); Glucose 105 mg/dL (74-106)
[2025-01-05 07:27] LABS: INR 1.19 (0.9-1.15); Prothrombin Time 12.4 sec (9.3-11.8)
[2025-01-05 07:29] LABS: Partial Thromboplastin Time 106.9 SEC (24.5-34.5)
[2025-01-05] MEDS: FUROSEMIDE 40 MG TAB PO SCH (09:20)
[2025-01-05] MEDS: METOPROLOL SUCCINATE XL 50 MG TAB PO SCH (09:21)
[2025-01-05] MEDS: ASPirin 81 mg TAB PO SCH (09:21)
[2025-01-05] MEDS: LOSARTAN POTASSIUM 25 MG TAB PO SCH (09:22)
[2025-01-05] MEDS: HEPARIN DRIP/D5W 100UNITS/ML 250 ML IV SCH (09:31)
--- NOTE | 2025-01-05 09:41 | DVH ---
Bilateral lower extremity venous duplex Clinical History: DVT Comparison: RT LOWER DVT on DOS: 04/12/22 Technique: Duplex Doppler evaluation of the deep venous systems of both lower extremities from the co mmon femoral veins to the popliteal veins including color Doppler and spectral/pulsed waveform analys is was performed. Findings: RIGHT SIDE: The common femoral vein demonstrates appropriate compressibility and waveform variability . There is compressibility/patency of the great saphenous vein at the proximal thigh . The femoral vein demonstrates appropriate compressibility and waveform variability . The deep femoral vein demonstrates appropriate compressibility and waveform variability . The popliteal vein demonstrates appropriate compressibility and waveform variability . There is color flow at the tibioperoneal trunk and in the posterior tibial vein. LEFT SIDE: The common femoral vein demonstrates appropriate compressibility and waveform variability . There is compressibility/patency of the great saphenous vein at the proximal thigh . The femoral vein demonstrates appropriate compressibility and waveform variability . The deep femoral vein demonstrates appropriate compressibility and waveform variability . The popliteal vein demonstrates appropriate compressibility and waveform variability . There is color flow at the tibioperoneal trunk and in the posterior tibial vein. Impression: 1. No right or left femoropopliteal venous thrombosis.
[2025-01-05 11:24] LABS: INR 1.17 (0.9-1.15); Partial Thromboplastin Time 55.8 SEC (24.5-34.5); Prothrombin Time 12.2 sec (9.3-11.8)
[2025-01-05 15:29] LABS: INR 1.18 (0.9-1.15); Partial Thromboplastin Time 59.4 SEC (24.5-34.5); Prothrombin Time 12.3 sec (9.3-11.8)
--- NOTE | 2025-01-05 15:47 | DVHPNRES ---
Progress Note Date Seen: Jan 05, 2025 Resident Creating Document: ROJELIO RAMOS RESIDENT Medical Necessity Reason Pt with a Central, PICC or Fol: No Subjective Review of Systems The patient is a 69-year-old male with past medical history of atrial fibrillation, hypertension who came to the hospital with a chief complaint of chest pain which was located on right sided over 9, 10, 11 rib, around mid clavicular line, octreotide with shortness of breaths, worsening of chest pain with movement, assure sugar with breathing, 7/10. However patient denied any other companies including fever, chills, sputum production, cough, nausea, vomiting, any other symptoms. Patient never failure similar kind of symptoms before, the patient underwent within last 2 year dobutamine stress echo which was negative for ischemia, the patient will be admitted for ruling out etiology of chest pain. The patient denied any other complaint at this point. PMH: Atrial fibrillation, hypertension Medication: Eliquis, furosemide, metoprolol, Lasix, atorvastatin, amiodarone Surgery: Left elbow surgery, right ankle surgery presence of prosthesis Allergy none Family history mother stroke, father myocardial infarction Personal history: Former smoker, quit in 1995. Twenty pack-year history. Methamphetamine use between 1983 and 1995 patient seen and examined at bed side. Continue to have chest pain, On low 2 L o2 via NC, ON hep drip, No need for thrombectomy as per radiology Objective vital signs Vital Sign Date Time Temp Pulse Resp B/P (MAP) Pulse Ox O2 Delivery O2 Flow Rate FiO2 01/05/25 13:00 98.0 56 16 115/79 (91) 96 98.0 01/05/25 08:15 Nasal Cannula* 2 28 medications Current Medications Medications Dose Ordered Sig/Lucio Route Start Time Stop Time Status Last Admin Dose Admin Nitroglycerin 0.4 mg Q5MINP PRN SL 01/04/25 15:45 Morphine Sulfate 2 mg Q30M PRN IV 01/04/25 15:45 01/04/25 21:27 2 MG Amiodarone HCl 200 mg BID PO 01/04/25 22:00 01/05/25 09:21 200 MG Atorvastatin Calcium 20 mg HS PO 01/04/25 22:00 01/04/25 21:26 20 MG Furosemide 40 mg DAILY PO 01/05/25 10:00 01/05/25 09:20 40 MG Metoprolol Succinate 25 mg DAILY PO 01/05/25 10:00 01/05/25 09:21 25 MG Aspirin 81 mg DAILY PO 01/05/25 10:00 01/05/25 09:21 81 MG Pantoprazole Sodium 40 mg DAILY@0600 PO 01/05/25 06:00 01/05/25 06:10 40 MG Losartan Potassium 12.5 mg DAILY PO 01/05/25 10:00 01/05/25 09:22 12.5 MG Ceftriaxone Sodium 50 ml @ 100 mls/hr Q24H IV 01/05/25 21:00 Azithromycin 500 mg Q24H PO 01/05/25 21:00 Morphine Sulfate 2 mg Q2HPRN PRN IV 01/04/25 20:30 01/05/25 12:23 2 MG Heparin Sodium/ Dextrose 250 ml @ 17 mls/hr [id number] IV 01/05/25 08:45 01/05/25 11:59 17 MLS/HR Examination General Appearance: Alert, Oriented X3, Cooperative HEENT: PERRLA, EOMI Respiratory: Clear to auscultation Cardiovascular: Regular rate, Normal S1, Normal S2 Abdominal: Normal bowel sounds, Soft, No tenderness Extremities: No clubbing, No cyanosis, No edema Skin: No rashes, No breakdown, No significant lesion Neuro: Normal gait, Normal speech, Strength at 5/5 X4 ext laboratory and microbiology Laboratory Tests 01/05/25 06:38 Test 01/05/25 06:38 Range/Units Serum Glucose 105 74-106 mg/dL Problem List/Assessment/Plan Problem List/Assessment/Plan Chest pain likely due to PE Pulmonary embolism Pulmonary infarct involving inferior aspect of right middle lobe Pneumonia Large hiatal hernia Questionable acute esophagitis and gastritis Questionable colitis BPH Hypertension Dyslipidemia Iron deficiency Plan/recommendation radiology consultation: not large enough to do thrombectomy, continue with anticoagulation -reviewed CT chest angio: Right middle lobar pulmonary embolism, pulmonary infarct involving inferior aspect of right middle lobe, initiate on IV heparin drip, consulted Interventional Radiology for possible thrombectomy. -IV antibiotics with ceftriaxone and azithromycin -continue with home medication aspirin, atorvastatin, Lasix, losartan, metoprolol. -PUD prophylaxis Protonix -DVT prophylaxis : Heparin drip Goals of care discussed greater than 24 m, full code status Plan discussed with: Patient, Other (RN) My Orders My Orders Orders - ROJELIO RAMOS RESIDENT Procedure Category Date Status Time Admit ADMIT 01/04/25 Transmitted 15:42 Nitroglycerin PHA 01/04/25 In Process Sublingual (Ntrostat 15:45 Morphine Sulfate PHA 01/04/25 In Process Injection 15:45 Echo 2d Mode Cardiac US 01/04/25 Resulted DOP 15:42 Amiodarone Tablet PHA 01/04/25 In Process (Cordarone Tablet) 22:00 Atorvastatin (Lipitor) PHA 01/04/25 In Process 22:00 Furosemide Tablet PHA 01/05/25 In Process (Lasix Tablet) 10:00 Metoprolol Xl PHA 01/05/25 In Process Succinate (Toprol Xl) 10:00 Aspirin Tablet PHA 01/05/25 In Process 10:00 Pantoprazole Tablet PHA 01/05/25 In Process (Protonix Tablet) 06:00 Losartan Tablet PHA 01/05/25 In Process (Cozaar Tablet) 10:00 Carbohydrate Antigen LAB 01/04/25 In Process 19-9 Ct Ab Pelvis W Wo CT 01/04/25 Resulted Con-Iv Only 16:[address] 01/04/25 Resulted Contrast 16:32 Ceftriaxone 1gm/50ml PHA 01/05/25 In Process D5w (Rocephin) 21:00 Azithromycin Tablet PHA 01/05/25 In Process (Zithromax Tablet) 21:00 Npo After Midnight ORDERS 01/04/25 Transmitted Npo (Nothing By DIET 01/05/25 Transmitted Mouth) Diet Breakfast Psa Total+% Free LAB 01/04/25 In Process 20:13 Platelet Monitoring ELIOT 01/04/25 In Process 20:13 Vte Protocol Initiated ELIOT 01/04/25 In Process 20:13 Heparin Per ELIOT 01/04/25 In Process Standardized Proce 20:13 Discontinue All Im ELIOT 01/04/25 In Process Injections 20:13 Morphine Sulfate PHA 01/04/25 In Process Injection 20:30 Heparin Per Pharmacy EL[facility] 01/04/25 In Process Protocol 21:58 Bilat Lower Dvt US 01/05/25 Resulted 07:12 Heparin Drip/D5w PHA 01/05/25 In Process 100units/Ml 08:45 Blood Culture MELISSA 01/05/25 In Process 10:18 Date of Service: Jan 05, 2025 Billing Provider: YAMILETH VERDUGO MD Common Visit Codes: [id number] INP/OBS CARE(HIGH) ROJELIO RAMOS RESIDENT Jan 05, 2025 15:47 YAMILETH VERDUGO MD Jan 06, 2025 20:50
[2025-01-05] MEDS: cefTRIAXone 1GM/50ML D5W 50 ML IV SCH (21:15)
[2025-01-05] MEDS: AZITHROMYCIN 250 MG TAB PO SCH (21:16)
[2025-01-05 21:25] LABS: INR 1.17 (0.9-1.15); Partial Thromboplastin Time 62.8 SEC (24.5-34.5); Prothrombin Time 12.2 sec (9.3-11.8)
[2025-01-06 00:52] VITALS: BP 123/77; PULSE 62; RESP 20; TEMP 98.7; O2SAT 95
[2025-01-06 03:02] LABS: Basophils # (auto) 0.1 10 ^3/uL (0-0.2); Basophils % (auto) 0.6 % (0.0-2.0); Eosinophils # (auto) 0 10 ^3/uL (0-0.8); Eosinophils % (auto) 0.5 % (0.0-7.0); Hematocrit 40.2 % (41.0-53.0); Hemoglobin 13.9 g/dL (13.5-17.5); Lymphocytes # (auto) 0.7 10 ^3/uL (0.4-5.4); Lymphocytes % (auto) 7.4 % (10.0-50.0); Mean Corpuscular Hemoglobin 31.4 pg (28.0-32.0); Mean Corpuscular Hgb Conc. 34.6 g/dL (32.0-36.0); Mean Corpuscular Volume 90.7 fL (80.0-100.0); Monocytes # (auto) 0.9 10 ^3/uL (0-1.3); Neutrophils # (auto) 8.1 10 ^3/uL (1.6-8.6); Neutrophils % (auto) 82.5 % (37.0-80.0); Nucleated Red Blood Cells % 0.1 %; Platelet Count (auto) 298 10^3/uL (140-450); Red Blood Cells 4.44 10^6/uL (4.5-5.90); Red Cell Distribution Width 13.8 % (11.8-14.3); White Blood Cell 9.9 10^3/uL (4.4-10.8)
[2025-01-06 03:10] LABS: Chloride 103 mmol/L (98-107); Potassium 3.7 mmol/L (3.5-5.1)
[2025-01-06 03:11] LABS: Anion Gap 6 (5-15); Carbon Dioxide 26 mmol/L (20-31)
[2025-01-06 03:14] LABS: Sodium 135 mmol/L (136-145)
[2025-01-06 03:17] LABS: BUN/Creatinine Ratio 20.8 (10.0-20.0); Blood Urea Nitrogen 16 mg/dL (9-23); Glucose 110 mg/dL (74-106)
[2025-01-06 04:46] VITALS: BP 118/67; PULSE 71; RESP 20; TEMP 98.5; O2SAT 100
[2025-01-06 08:15] VITALS: PULSE 68
[2025-01-06 08:58] VITALS: BP 126/76; PULSE 55; RESP 19; TEMP 98.1; O2SAT 95
[2025-01-06] MEDS: APIXABAN 5 MG TAB PO SCH (10:57)
[2025-01-06] MEDS ORDERED: APIX5TAB4 PO (10:58)
[2025-01-06] MEDS ORDERED: LOS25T PO (10:58)
[2025-01-06] MEDS ORDERED: ASPI-325 PO (10:58)
[2025-01-06] MEDS ORDERED: FURO40TA4 PO (10:58)
[2025-01-06] MEDS ORDERED: METO25TA36 PO (10:58)
[2025-01-06] MEDS ORDERED: AMIO200T33 PO (10:58)
[2025-01-06] MEDS ORDERED: ATOR20TA50 PO (10:58)
[2025-01-06 13:00] VITALS: BP 108/63; PULSE 58; RESP 17; TEMP 98.3; O2SAT 90
[2025-01-06 13:07] LABS: PSA Free 0.35 ng/mL
--- NOTE | 2025-01-06 13:38 | DVHDSRES ---
Discharge Summary Date of Admission Resident Creating Document: ROJELIO RAMOS RESIDENT Jan 04, 2025 at 15:42 Date of Discharge: Jan 06, 2025 Labs/Diagnostic Data: Laboratory Results Test 01/06/25 02:52 01/05/25 20:53 01/04/25 23:59 01/04/25 20:31 White Blood Count 9.9 10^3/uL (4.4-10.8) Red Blood Count 4.44 10^6/uL (4.5-5.90) Hemoglobin 13.9 g/dL (13.5-17.5) Hematocrit 40.2 % (41.0-53.0) Mean Corpuscular Volume 90.7 fL (80.0-100.0) Mean Corpuscular Hemoglobin 31.4 pg (28.0-32.0) Mean Corpuscular Hemoglobin Concent 34.6 g/dL (32.0-36.0) Red Cell Distribution Width 13.8 % (11.8-14.3) Platelet Count 298 10^3/uL (140-450) Mean Platelet Volume 6.5 fL (6.9-10.8) Neutrophils (%) (Auto) 82.5 % (37.0-80.0) Lymphocytes (%) (Auto) 7.4 % (10.0-50.0) Monocytes (%) (Auto) 9.0 % (0.0-12.0) Eosinophils (%) (Auto) 0.5 % (0.0-7.0) Basophils (%) (Auto) 0.6 % (0.0-2.0) Neutrophils # (Auto) 8.1 10 ^3/uL (1.6-8.6) Lymphocytes # (Auto) 0.7 10 ^3/uL (0.4-5.4) Monocytes # (Auto) 0.9 10 ^3/uL (0-1.3) Eosinophils # (Auto) 0 10 ^3/uL (0-0.8) Basophils # (Auto) 0.1 10 ^3/uL (0-0.2) Nucleated Red Blood Cells 0.1 % Activated Partial Thromboplast Time 64.7 SEC (24.5-34.5) Sodium Level 135 mmol/L (136-145) Potassium Level 3.7 mmol/L (3.5-5.1) Chloride Level 103 mmol/L (98-107) Carbon Dioxide Level 26 mmol/L (20-31) Anion Gap 6 (5-15) Blood Urea Nitrogen 16 mg/dL (9-23) Creatinine 0.77 mg/dL (0.700-1.30) Glomerular Filtration Rate Calc 98 mL/min (>90) BUN/Creatinine Ratio 20.8 (10.0-20.0) Serum Glucose 110 mg/dL (74-106) Calcium Level 9.0 mg/dL (8.7-10.4) Prothrombin Time 12.2 sec (9.3-11.8) Prothrombin Time INR 1.17 (0.9-1.15) Urine Color Light-orange (Yellow) Urine Clarity Clear (Clear) Urine pH 6.0 (5.0-9.0) Urine Specific [place] > 1.050 (1.001-1.035) Urine Protein 1+ (Negative) Urine Ketones 1+ (Negative) Urine Blood Trace /uL (Negative) Urine Nitrite Negative (Negative) Urine Bilirubin Negative (Negative) Urine Urobilinogen Normal mg/dL (Negative) Urine Leukocyte Esterase Negative /uL (Negative) Urine RBC 4 /hpf (0 - 3) Urine Microscopic WBC 1 /HPF (0-3) Urine Squamous Epithelial Cells Few /hpf (<5) Urine Bacteria Few /hpf (None Seen) Urine Glucose Normal mg/dL (Normal) B-Type Natriuretic Peptide 59.45 pg/mL (0-100) Free Prostate Specific Antigen 0.35 ng/mL (N/A) Percent Free Prostate Specific Ag 17.5 % (.) Prostate Specific Antigen Total 2.0 ng/mL (0.0-4.0) Test 01/04/25 16:27 01/04/25 14:57 01/04/25 13:59 Total Bilirubin 1.6 mg/dL (0.2-1.0) Aspartate Amino Transferase (AST) 21 U/L (13-40) Alanine Aminotransferase (ALT) 22 U/L (7-40) Alkaline Phosphatase 106 U/L (46-116) Total Protein 6.9 g/dL (5.7-8.2) Albumin 4.3 g/dL (3.2-4.8) CA 19-9 Antigen 26 U/mL (0-35) Troponin I High Sensitivity < 3 ng/L (</=54) D-Dimer, Quantitative 1.61 mg/L FEU (0.0-0.49) Triglycerides Level 84 mg/dL (< 150) Cholesterol Level 229 mg/dL (< 200) LDL Cholesterol 175 mg/dL (< 100) HDL Cholesterol 54 mg/dL (40-59) Carcinoembryonic Antigen 1.73 ng/mL (<=5.0) Thyroid Stimulating Hormone (TSH) 1.37 uIU/mL (0.55-4.78) Other Laboratory Tests 01/06/25 02:52 Brief Hx & Hospital Course: H&P:The patient is a 69-year-old male with past medical history of atrial fibrillation, hypertension who came to the hospital with a chief complaint of chest pain which was located on right sided over 9, 10, 11 rib, around mid clavicular line, octreotide with shortness of breaths, worsening of chest pain with movement, assure sugar with breathing, 7/10. However patient denied any other companies including fever, chills, sputum production, cough, nausea, vomiting, any other symptoms. Patient never failure similar kind of symptoms before, the patient underwent within last 2 year dobutamine stress echo which was negative for ischemia, the patient will be admitted for ruling out etiology of chest pain. The patient denied any other complaint at this point. PMH: Atrial fibrillation, hypertension Medication: Eliquis, furosemide, metoprolol, Lasix, atorvastatin, amiodarone Surgery: Left elbow surgery, right ankle surgery presence of prosthesis Allergy none Family history mother stroke, father myocardial infarction Personal history: Former smoker, quit in 1995. Twenty pack-year history. Methamphetamine use between 1983 and 1995 Hospital course: Patient was evaluated for chest pain, underwent CT angio chest, found to have Basilar Right middle lobar pulmonary embolism. No evidence of right heart strain. Likely pulmonary infarct involving the inferior aspect of the right middle lobe. Initiated on heparin drip, radiology consult tissue return for possible thrombectomy. Given patient was hemodynamically stable, no right ventricular strain echocardiogram, smaller size of clot, Radiology recommended only medical management. Even patient was hemodynamically stable, heparin drip transition to Eliquis 10 mg b.i.d. for an for 7 days and then 5 mg b.i.d. for 7 days. Patient does not have any likely etiology of PE, patient will need further evaluation for possible cancer cauasing coagulopathy. Given previous history of stool occult blood positive, patient advised to follow up with primary care physician and Gastroenterology for evaluation of colonoscopy for colon cancer screening. Patient agreed with discharge plan, patient will be discharged home. Condition at Discharge: Stable Final Diagnosis/Problems List Chest pain likely due to PE Pulmonary embolism Pulmonary infarct involving inferior aspect of right middle lobe Pneumonia Large hiatal hernia Questionable acute esophagitis and gastritis Questionable colitis BPH Hypertension Dyslipidemia Iron deficiency Discharge Disposition: Home Discharge Instruct/Medications Diet: Cardiac 2g Na,low cholest Activity: No Restrictions, As Tolerated Follow Up/Referral: -Follow up with PCP in 1 week Medications: See prescription Discharge Statement: "Patient was advised to return to the ER or call 911 if any headaches, dizziness, shortness of breath, chest pain, abdominal pain, bleeding, fevers, or worsening of medical condition. Patient was counseled about treatment plan, medications, possible side effects, patientverbalized understanding. All questions were answered to the best of my ability. This discharge took greater then 30 minutes in planning, reviewing documentation, counseling the patient, and discussing with other team members." ASSESSMENT ASSESSMENT Assessment Chest pain likely due to PE Pulmonary embolism Pulmonary infarct involving inferior aspect of right middle lobe Pneumonia Large hiatal hernia Questionable acute esophagitis and gastritis Questionable colitis BPH Hypertension Dyslipidemia Iron deficiency Date of Service: Jan 06, 2025 Billing Provider: YAMILETH VERDUGO MD Common Visit Codes: [id number] DISCH DAY >30min ROJELIO RAMOS RESIDENT Jan 06, 2025 13:38 YAMILETH VERDUGO MD Jan 06, 2025 21:39
[2025-01-06 16:23] VITALS: BP 138/78; PULSE 59; RESP 16
[2025-01-13] MEDS ORDERED: APIXABAN 5 MG TAB PO SCH (10:00)
== END 2025-01-06 17:10 | disposition home or self-care (01) | DRG 175 ==
LOC: ER 13:41 → OVERFLOW 15:42 → TELE-WESTW 21:08
PROVIDERS: ADMIT Internal Medicine; ATTEND Emergency Medicine
DX: I26.99 Other pulmonary embolism without acute cor pulmonale (principal); J18.9 Pneumonia, unspecified organism; I16.0 Hypertensive urgency; I10 Essential (primary) hypertension; K29.70 Gastritis, unspecified, without bleeding; K44.9 Diaphragmatic hernia without obstruction or gangrene; K52.9 Noninfective gastroenteritis and colitis, unspecified; N40.0 Benign prostatic hyperplasia without lower urinary tract symptoms; E78.5 Hyperlipidemia, unspecified; E61.1 Iron deficiency; I48.91 Unspecified atrial fibrillation; K20.90 Esophagitis, unspecified without bleeding; Z87.442 Personal history of urinary calculi
CPT/HCPCS: 36415; 71045; 71275; 74178; 80048; 80053; 80061; 81001; 82378; 83880; 84154; 84443; 84484; 85025; 85379; 85610; 85730; 86301; 87040; 93005; 93306; 93970; 96365; 99291; G0378

== ENCOUNTER → 2025-06-24 | Outpatient (CLI) | payer BC, MEDICARE ==
[~2025-06-24] MED LIST changes: -APIX5TAB PO; +APIX5TAB4 PO; +ASPI-325 PO; +LOS25T PO
[2025-06-24 16:19] LABS: Hematocrit 43.0 % (41.0-53.0); Hemoglobin 14.9 g/dL (13.5-17.5); Mean Corpuscular Hemoglobin 31.7 pg (28.0-32.0); Mean Corpuscular Volume 91.2 fL (80.0-100.0); Nucleated Red Blood Cells % 0.1 %
[2025-06-24 16:36] LABS: Alanine Aminotransferase 29 U/L (7-40); Albumin 4.2 g/dL (3.2-4.8); Alkaline Phosphatase 79 U/L (46-116); Anion Gap 10 (5-15); BUN/Creatinine Ratio 11.8 (10.0-20.0); Blood Urea Nitrogen 13 mg/dL (9-23); Calcium 8.9 mg/dL (8.7-10.4); Carbon Dioxide 24 mmol/L (20-31); Glucose 78 mg/dL (74-106); HDL Cholesterol 53 mg/dL (40-59); Potassium 3.9 mmol/L (3.5-5.1); Sodium 143 mmol/L (136-145); Total Protein 7.0 g/dL (5.7-8.2); Triglycerides 117 mg/dL (< 150)
[2025-06-24 16:52] LABS: Urine Protein, UAD TRACE (Negative)
[2025-06-24 16:54] LABS: Bilirubin, Total 1.3 mg/dL (0.2-1.0); Chloride 109 mmol/L (98-107); Cholesterol 243 mg/dL (< 200)
== END | disposition home or self-care (01) ==
LOC: LAB 15:45
PROVIDERS: ATTEND Internal Medicine
DX: I10 Essential (primary) hypertension (principal); E78.5 Hyperlipidemia, unspecified; D50.9 Iron deficiency anemia, unspecified; R79.89 Other specified abnormal findings of blood chemistry; Z13.1 Encounter for screening for diabetes mellitus; Z00.01 Encounter for general adult medical examination with abnormal findings
CPT/HCPCS: 36415; 80053; 80061; 81001; 83036; 84439; 84443; 85025